=== PATIENT | male | born 1980 | race Caucasian/White ===

== ENCOUNTER 2018-10-07 15:05 | Emergency (ER) | payer OTHER, MEDICAID, SELFPAY ==
[2018-10-07 15:08] VITALS: BP 130/65; PULSE 83; RESP 20; TEMP 37.1; O2SAT 95; BMI 64.2
--- NOTE | 2018-10-07 15:48 | DI.US.S_ITS ---
PROCEDURE: US PERIPH VENOUS LOW EXTREM LT INDICATIONS: In ED WR, can go to US. h/o dvt, not on thinners TECHNIQUE: Real-time imaging, as well as color and pulse Doppler interrogation, were performed of the lower extremity deep veins from the inguinal ligament to the popliteal fossa. COMPARISON: None. FINDINGS: The deep veins are normally compressible, and free of intraluminal thrombus. Color and pulse Doppler demonstrate normal phasic intraluminal flow. There is normal augmentation response to distal compression maneuver. However, partial thrombosis of the greater saphenous vein is identified as well as areas of varicosities within the thigh. IMPRESSION: 1. No evidence of left lower charm the deep vein thrombosis. 2. Partial thrombosis of the greater saphenous vein is compatible with superficial vein thrombosis which probably is subacute and clinical correlation is recommended to exclude superficial thrombophlebitis. Dictated by: Korey Mathews M.D. on 10/07/2018 at 15:52 Approved by: Korey Mathews M.D. on 10/07/2018 at 16:02
[2018-10-07 16:53] VITALS: PULSE 88
--- NOTE | 2018-10-07 17:06 | ED_ITS ---
HPI - Extremity Injury (Lower) <COURTNEY Rose - Last Filed: 10/07/18 22:17> General Chief Complaint: Extremity Injury, Lower Stated Complaint: LEFT LEG SWELLING Time Seen by Provider: 10/07/18 16:48 Source: patient Mode of arrival: ambulatory Limitations: no limitations History of Present Illness HPI Narrative: 37-year-old male with history of a prior DVT and is a a former smoker here for complaint of swelling to his left lower extremity causing discomfort Since this morning. He denies any trauma to the area. He does report that he has history of having a demon to his left lower extremity more than his right after having cellulitis a couple of years ago. He states that the swelling is actually worse today. 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 He denies any chest pain. No shortness of breath. No fevers or chills. He denies any redness to his left lower extremity. He is ambulatory into the [facility] Home Medications Medication Instructions Recorded Confirmed No Known Home Medications 10/07/18 10/07/18 Allergies Allergy/AdvReac Type Severity Reaction Status Date / Time No Known Drug Allergies Allergy Verified 10/07/18 15:08 Review of Systems <COURTNEY Rose - Last Filed: 10/07/18 22:17> Constitutional Denies chills, Denies fever(s), Denies lethargy and Denies weakness Eyes Denies change in vision, Denies eye discharge, Denies irritation and Denies loss of vision ENT Ears, Nose, Mouth, and Throat: Denies change in voice, Denies neck pain and Denies sore throat Cardiovascular Denies chest pain, Denies irregular heart rhythm, Denies lightheadedness, Denies palpitations, Denies dyspnea, Denies dyspnea on exertion and Denies orthopnea Respiratory Denies cough, Denies dyspnea, Denies dyspnea on exertion and Denies wheezing Gastrointestinal Gastrointestinal: Denies abdominal pain, Denies change in bowel habits, Denies diarrhea, Denies nausea and Denies vomiting Genitourinary Denies hematuria, Denies flank pain, Denies urinary incontinence and Denies urinary urgency Musculoskeletal Denies neck pain Comments: Swelling left lower extremity Integumentary/Breasts Denies pruritus, Denies erythema, Denies rash and Denies wounds Neurologic Denies loss of vision and Denies weakness Endocrine Denies palpitations Hematologic/Lymphatic Denies easy bruising Allergic/Immunologic Denies wheezing Exam <COURTNEY Rose - Last Filed: 10/07/18 22:17> Initial Vital Signs Initial Vital Signs: Vital Signs Temperature 98.7 F 10/07/18 15:08 Pulse Rate 83 10/07/18 15:08 Respiratory Rate 20 10/07/18 15:08 Blood Pressure 130/65 10/07/18 15:08 Pulse Oximetry 95 10/07/18 15:08 Const General: cooperative and well developed Nutritional Appearance: well nourished Orientation: alert, awake, oriented x3 and not confused HENMA Mouth: oral mucosae normal and moist mucous membranes Eyes Conjunctivae: conjunctivae normal Sclera: sclerae normal Pupils: PERRL EOM: EOM intact bilaterally Resp Effort & Inspection: normal respiratory effort, able to speak in complete sentences, no respiratory distress and no use of accessory muscles Auscultation: clear to auscultation bilaterally, no rales, no rhonchi and no wheezes Cardio Rate: regular rate Rhythm: regular rhythm Heart Sounds: no click, no gallops, no murmurs and no rubs Pulses: normal peripheral pulses Skin General: no rashes or lesions noted, No jaundice and No petechiae Neuro General: alert, oriented x3, gait normal and no focal motor deficits Speech: speech normal Extrem Other: left lower extremity with +2 pitting edema greater than the right lower extremity. No significant erythema. No increased temperature. Homans sign is negative. Distal sensation is intact. Distal pulses are intact. Distal range of motion is intact. <George Velasquez DO - Last Filed: 10/08/18 07:11> Initial Vital Signs Initial Vital Signs: Vital Signs Temperature 98.7 F 10/07/18 15:08 Pulse Rate 83 10/07/18 15:08 Respiratory Rate 20 10/07/18 15:08 Blood Pressure 130/65 10/07/18 15:08 Pulse Oximetry 95 10/07/18 15:08 Course <COURTNEY Rose - Last Filed: 10/07/18 22:17> Orders Ordered: ED Orders 10/07/18 15:48 US periph venous low extrem lt Stat 10/07/18 17:04 Complete Blood Count AUTO DIFF Stat Comprehensive Metabolic Panel Stat Partial Thromboplastin Time Stat Prothrombin Time INR Stat Vital Signs - 8 hr 10/07/18 15:08 10/07/18 16:53 10/07/18 18:34 Temperature 98.7 F Pulse Rate 83 78 Pulse Rate [Left Posterior Tibial] 88 Respiratory Rate 20 18 Blood Pressure 130/65 134/91 H Pulse Oximetry 95 99 <George Velasquez DO - Last Filed: 10/08/18 07:11> Orders Ordered: ED Orders 10/07/18 15:48 US periph venous low extrem lt Stat 10/07/18 17:04 Complete Blood Count AUTO DIFF Stat Comprehensive Metabolic Panel Stat Partial Thromboplastin Time Stat Prothrombin Time INR Stat Vital Signs - 8 hr 10/07/18 15:08 10/07/18 16:53 10/07/18 18:34 Temperature 98.7 F Pulse Rate 83 78 Pulse Rate [Left Posterior Tibial] 88 Respiratory Rate 20 18 Blood Pressure 130/65 134/91 H Pulse Oximetry 95 99 MDM - Extremity Injury (Lower) <COURTNEY Rose - Last Filed: 10/07/18 22:17> Lab Data Result diagrams: 10/07/18 17:04 10/07/18 17:04 Lab Results 10/07/18 10/07/18 10/07/18 Range/Units 17:04 17:04 17:04 WBC 8.6 (4.5-11.0) X10^3/uL RBC 4.58 (4.5-5.9) X10^6/uL Hgb 14.6 (13.5-17.5) g/dL Hct 43.8 (41-53) % MCV 95.6 (80-100) fL MCH 31.9 (26-34) PG MCHC 33.3 (30-36) % RDW 13.9 (11.6-14.8) % Plt Count 251 (150-400) X10^3/uL Neut % (Auto) 64.8 (50-75) % Lymph % (Auto) 25.6 (25-40) % [place] % (Auto) 8.2 (3-14) % Eos % (Auto) 0.7 L (2-4) % Baso % (Auto) 0.7 (0-2) % Neut # (Auto) 5600 (2489-5896) /uL Lymph # (Auto) 2200 (5003-3163) /uL [place] # (Auto) 700 (0-900) /uL Eos # (Auto) 100 (0-450) /uL Baso # (Auto) 100 (0-100) /uL PT 13.0 H (10.1-12.7) SECONDS INR 1.1 (0.9-1.3) APTT 31 (26.4-36.2) SECONDS Sodium 138 (137-145) mmol/L Potassium 3.9 (3.4-5.1) mmol/L Chloride 102 (98-107) mmol/L Carbon Dioxide 29 (22-32) mmol/L BUN 11 (9-20) mg/dL Creatinine 0.50 L (0.66-1.25) mg/dL Estimated GFR > 60.0 (>60) mL/min BUN/Creatinine Ratio 22.0 (6-22) Glucose 105 H (70-100) mg/dL Calcium 8.8 (8.4-10.2) mg/dL Total Bilirubin 0.6 (0.2-1.3) mg/dL AST 25 (17-59) IU/L ALT 46 (21-72) IU/L Alkaline Phosphatase 79 (38-126) U/L Total Protein 7.5 (6.3-8.2) g/dL Albumin 4.3 (3.5-5.0) g/dL Globulin 3.2 (1.7-4.1) g/dL Albumin/Globulin Ratio 1.3 (1.0-2.8) Imaging Data Ultrasound left lower extremity: Radiologist's impression: [address] [address] Ultrasound Report Signed Patient: Rio Quiñones#: [id number] : 1980Acct:[id number] Age/Sex: 37 / MDate of Service: 10/07/18 Loc: ED Accession Number: [id number] Procedure: US periph venous low extrem lt Ordering Provider: Jennifer Low D.O. PROCEDURE: US PERIPH VENOUS LOW EXTREM LT INDICATIONS: In ED WR, can go to US. h/o dvt, not on thinners TECHNIQUE: Real-time imaging, as well as color and pulse Doppler interrogation, were performed of the lower extremity deep veins from the inguinal ligament to the popliteal fossa. COMPARISON: None. FINDINGS: The deep veins are normally compressible, and free of intraluminal thrombus. Color and pulse Doppler demonstrate normal phasic intraluminal flow. There is normal augmentation response to distal compression maneuver. However, partial thrombosis of the greater saphenous vein is identified as well as areas of varicosities within the thigh. IMPRESSION: 1. No evidence of left lower charm the deep vein thrombosis. 2. Partial thrombosis of the greater saphenous vein is compatible with superficial vein thrombosis which probably is subacute and clinical correlation is recommended to exclude superficial thrombophlebitis. Dictated by: Korey Mathews M.D. on 10/07/2018 at 15:52 Approved by: Korey Mathews M.D. on 10/07/2018 at 16:02 [facility] Narrative Medical decision making narrative: ultrasound left lower extremity was obtained and was negative for DVT. There does show that there is a partial thrombosis to the greater saphenous vein and findings that could represent superficial thrombitis. Differential between a dependent edema and venous insufficiency. CBC and Chem panel were obtained were unremarkable. INR was normal. Will have patient try warm moist compresses for any superficial thrombi itis and elevation for the edema. He is instructed follow up with primary care provider next few days for re-evaluation. For any worsening symptoms return em <George Velasquez, - Last Filed: 10/08/18 07:11> Lab Data Lab Results 10/07/18 10/07/18 10/07/18 Range/Units 17:04 17:04 17:04 WBC 8.6 (4.5-11.0) X10^3/uL RBC 4.58 (4.5-5.9) X10^6/uL Hgb 14.6 (13.5-17.5) g/dL Hct 43.8 (41-53) % MCV 95.6 (80-100) fL MCH 31.9 (26-34) PG MCHC 33.3 (30-36) % RDW 13.9 (11.6-14.8) % Plt Count 251 (150-400) X10^3/uL Neut % (Auto) 64.8 (50-75) % Lymph % (Auto) 25.6 (25-40) % [place] % (Auto) 8.2 (3-14) % Eos % (Auto) 0.7 L (2-4) % Baso % (Auto) 0.7 (0-2) % Neut # (Auto) 5600 (7309-4398) /uL Lymph # (Auto) 2200 (8269-2564) /uL [place] # (Auto) 700 (0-900) /uL Eos # (Auto) 100 (0-450) /uL Baso # (Auto) 100 (0-100) /uL PT 13.0 H (10.1-12.7) SECONDS INR 1.1 (0.9-1.3) APTT 31 (26.4-36.2) SECONDS Sodium 138 (137-145) mmol/L Potassium 3.9 (3.4-5.1) mmol/L Chloride 102 (98-107) mmol/L Carbon Dioxide 29 (22-32) mmol/L BUN 11 (9-20) mg/dL Creatinine 0.50 L (0.66-1.25) mg/dL Estimated GFR > 60.0 (>60) mL/min BUN/Creatinine Ratio 22.0 (6-22) Glucose 105 H (70-100) mg/dL Calcium 8.8 (8.4-10.2) mg/dL Total Bilirubin 0.6 (0.2-1.3) mg/dL AST 25 (17-59) IU/L ALT 46 (21-72) IU/L Alkaline Phosphatase 79 (38-126) U/L Total Protein 7.5 (6.3-8.2) g/dL Albumin 4.3 (3.5-5.0) g/dL Globulin 3.2 (1.7-4.1) g/dL Albumin/Globulin Ratio 1.3 (1.0-2.8) Discharge Plan Departure Patient Disposition: Home Clinical Impression: Edema of left lower extremity Discharge Date/Time: 10/07/18 18:34 Interventions: ED Discharge Assessment Last Done: 10/07/18 18:34 Instructions: DI for Dependent Edema Activity Restrictions/Additional Instructions: ultrasound was obtained of the left lower extremity and was unremarkable for DVT. Signs and symptoms presents as a dependent edema. Make sure you elevate your lower extremities to help with the swelling. Suspect there also may be some venous insufficiency. Follow up with her primary care provider for further evaluation and treatment. For any worsening symptoms return to the emergency room. You may also use warm moist compresses to the painful swollen area just in case there is a superficial blood clot. Prescriptions: No Action No Known Home Medications RF: 0 Referrals: [facility] [Provider Group] <George Velasquez, - Last Filed: 10/08/18 07:11> Cosign ED Attending Emilio Attestation: I was available for consultation during this patient's emergency department encounter
[2018-10-07 17:07] LABS: Add Manual Diff / Slide Review NO; Basophils Absolute Auto 100 /uL (0-100); Basophils Percent Auto 0.7 % (0-2); Eosinophils Absolute Auto 100 /uL (0-450); Eosinophils Percent Auto 0.7 % (2-4); Hematocrit 43.8 % (41-53); Hemoglobin 14.6 g/dL (13.5-17.5); Lymphocytes Absolute Auto 2200 /uL (1100-4500); Lymphocytes Percent Auto 25.6 % (25-40); Mean Corpuscular HGB Conc 33.3 % (30-36); Mean Corpuscular Hemoglobin 31.9 PG (26-34); Mean Corpuscular Volume 95.6 fL (80-100); Monocytes Absolute Auto 700 /uL (0-900); Monocytes Percent Auto 8.2 % (3-14); Neutrophils Absolute Auto 5600 /uL (1500-7000); Neutrophils Percent Auto 64.8 % (50-75); Platelet Count 251 X10^3/uL (150-400); Red Blood Cell Count 4.58 X10^6/uL (4.5-5.9); Red Cell Distribution Width 13.9 % (11.6-14.8); White Blood Cell Count 8.6 X10^3/uL (4.5-11.0)
[2018-10-07 17:14] LABS: Alanine Aminotransferase 46 IU/L (21-72); Albumin 4.3 g/dL (3.5-5.0); Albumin Globulin Ratio 1.3 (1.0-2.8); Alkaline Phosphatase 79 U/L (38-126); Aspartate Aminotransferase 25 IU/L (17-59); Bilirubin Total 0.6 mg/dL (0.2-1.3); Blood Urea Nitrogen 11 mg/dL (9-20); Calcium 8.8 mg/dL (8.4-10.2); Carbon Dioxide 29 mmol/L (22-32); Chloride 102 mmol/L (98-107); Estimated Glomerular Filt Rate > 60.0 mL/min (>60); Globulin 3.2 g/dL (1.7-4.1); Glucose 105 mg/dL (70-100); HEMOLYSIS < 15 (0-50); Potassium 3.9 mmol/L (3.4-5.1); Sodium 138 mmol/L (137-145); Total Protein 7.5 g/dL (6.3-8.2)
[2018-10-07 17:15] LABS: INR 1.1 (0.9-1.3)
[2018-10-07 17:18] LABS: PTT Partial Thromboplastin Tim 31 SECONDS (26.4-36.2)
[2018-10-07 18:34] VITALS: BP 134/91; PULSE 78; RESP 18; O2SAT 99
== END 2018-10-07 18:34 | disposition home or self-care (01) ==
PROVIDERS: Emergency Medicine; Emergency Provider Nurse Practitioner Family
DX: R60.0 Localized edema (principal)
CPT/HCPCS: 36415; 80053; 85025; 85610; 85730; 93971; 99282; 99284

== ENCOUNTER 2019-01-01 15:25 | Emergency (ER) | payer OTHER, MEDICAID, SELFPAY ==
[2019-01-01 15:29] VITALS: PULSE 91; RESP 22; TEMP 37.3; O2SAT 96; BMI 55.0
[2019-01-01 16:58] VITALS: BP 123/69; PULSE 87; O2SAT 96
--- NOTE | 2019-01-01 18:39 | ED.EXTPRO ---
HPI - Extremity Problem <[facility] - Last Filed: 01/01/19 18:45> General Chief complaint: Extremity Problem,Nontraumatic Stated complaint: LEFT LEG INFECTION Time Seen by Provider: 01/01/19 16:20 Source: patient Mode of arrival: ambulatory Limitations: no limitations History of Present Illness HPI Narrative: The patient is a 38-year-old male former smoker with history of diabetes who presents with chief complaint of drainage and redness from his left lower leg. He states it started draining fluid then became red last night. He denies any fevers nausea vomiting or abnormal diarrhea. He has not applied anything to it. He has not taken anything for it. he is concerned about infection as he knows he is at high risk of infection due to his diabetes. He has scheduled a follow-up appointment with his primary care provider for , but does not want to wait until in to be seen. He denies any chest pain or shortness of breath. He does state that he has chronic lower leg edema bilaterally. He denies any trauma to the area. Related Data Previous Rx's Medication Instructions Recorded clindamycin HCl 300 mg PO QID #40 cap 01/01/19 Allergies Allergy/AdvReac Type Severity Reaction Status Date / Time No Known Drug Allergies Allergy Verified 10/07/18 15:08 Review of Systems <[facility] - Last Filed: 01/01/19 18:45> Review of Systems GENERAL: Denies chills, fatigue, malaise, fever, sweats. HEENT: Denies sinus pain, ear pain, sore throat, difficulty swallowing, dizziness. RESPIRATORY: Denies dyspnea, cough, wheezing, hemoptysis, sputum. CARDIOVASCULAR: Denies chest pain, palpitations, orthopnea, edema, GASTROINTESTINAL: Denies nausea, vomiting, abdominal pain, diarrhea, constipation, melena. : Denies dysuria, frequency, incontinence, hematuria, urinary retention. MUSCULOSKELETAL: See HPI SKIN: See HPI NEUROLOGIC: Denies weakness, headache, numbness, change in speech, confusion, seizures, incoordination. PSYCHIATRIC: No concerning psychosocial issues. 12 point review of systems is negative except for those stated above PFSH <CHELSEA Cintron - Last Filed: 01/01/19 18:45> Medical History (Updated 01/01/19 @ 18:43 by UNA Cintron) Diabetes (Acute) Obesity (Acute) Social History Smoking Status: Former smoker Social History Smoking Status: Former smoker Exam <UNA Cintron - Last Filed: 01/01/19 18:45> Narrative Exam Narrative: GENERAL: Morbidly obese male lying on stretcher HEAD: Atraumatic. Normocephalic. No temporal or scalp tenderness. EYES: Pupils equal round and reactive. Extraocular motions intact. No scleral icterus. No injection or drainage. NECK: Trachea midline. No JVD or lymphadenopathy. Supple, nontender, no meningeal signs. CARDIOVASCULAR: Regular rate and rhythm RESPIRATORY: Clear to auscultation. Breath sounds equal bilaterally. No wheezes, rales, or rhonchi. No cough. No increased respiratory effort. GASTROINTESTINAL: Abdomen soft, non-tender, nondistended. No hepato-splenomegaly, or palpable masses. No guarding. Active bowel sounds. EXTREMITIES: +2 edema noted bilaterally. No pain to palpation left calf. Steady gait. BACK: Nontender without deformity or crepitance. No flank tenderness. NEURO: AOx3. SKIN: 6 x 4 cm of erythema with 2 small ulcerations draining serosanguineous fluid located left stephen Initial Vital Signs Initial Vital Signs: Vital Signs Temperature 99.2 F 01/01/19 15:29 Pulse Rate 91 H 01/01/19 15:29 Respiratory Rate 22 01/01/19 15:29 Pulse Oximetry 96 01/01/19 15:29 <Kristy Arteaga DO - Last Filed: 01/02/19 14:33> Initial Vital Signs Initial Vital Signs: Vital Signs Temperature 99.2 F 01/01/19 15:29 Pulse Rate 91 H 01/01/19 15:29 Respiratory Rate 22 01/01/19 15:29 Pulse Oximetry 96 01/01/19 15:29 Course <UNA Cintron - Last Filed: 01/01/19 18:45> Orders Ordered: ED Orders 01/01/19 16:50 Wound Culture and Gram Stain Stat Vital Signs - 8 hr 01/01/19 15:29 01/01/19 16:58 Temperature 99.2 F Pulse Rate 91 H 87 Respiratory Rate 22 Blood Pressure 123/69 Pulse Oximetry 96 96 <Kristy Arteaga DO - Last Filed: 01/02/19 14:33> Orders Ordered: ED Orders 01/01/19 16:50 Wound Culture and Gram Stain Stat Vital Signs - 8 hr 01/01/19 15:29 01/01/19 16:58 Temperature 99.2 F Pulse Rate 91 H 87 Respiratory Rate 22 Blood Pressure 123/69 Pulse Oximetry 96 96 MDM - Extremity (Nontraumatic) <DAMEON Cintron-BC - Last Filed: 01/01/19 18:45> MDM Narrative Medical decision making narrative: The patient presents with erythema and warmth on his left stephen. He does have some drainage. He is hemodynamically stable, afebrile and shows no signs of systemic illness. Thus I will treat his cellulitis with clindamycin as he has increased MRSA risk due to his diabetes. Discussed rest. Discussed follow-up with primary care provider. Discussed return precautions of chest pain, shortness of breath, fever, inability keep down fluids etc. Encourage probiotic use with clindamycin. Patient has no questions or concerns upon discharge. Discharge Plan Departure Patient Disposition: Home Clinical Impression: Cellulitis Qualifiers: Site of cellulitis: extremity Site of cellulitis of extremity: lower extremity Laterality: left Qualified Code(s): L03.116 - Cellulitis of left lower limb Discharge Date/Time: 01/01/19 16:59 Interventions: ED Discharge Assessment Last Done: 01/01/19 16:58 Instructions: DI for Cellulitis -- Adult Activity Restrictions/Additional Instructions: I have started you on an antibiotic for urine infection. Wound cultures pending at this time. I have given you few days off of work so that he can rest and elevate her leg. Please come back to emergency department for any acute concerns such as chest pain, shortness of breath inability keep down fluids. Monitor for worsening of the redness. The antibiotics will take several doses to kick in. Please follow up with primary care provider as we discussed. Prescriptions: New clindamycin HCl 300 mg capsule 300 mg PO QID Qty: 40 RF: 0 Referrals: Fabby Pena ARNP [Non-Staff] - Stand Alone Forms: Work Release Note <Kristy Arteaga DO - Last Filed: 01/02/19 14:33> Cosign ED Attending Cosignature Attestation: I was immediately available in the department for consultation. Documentation has been reviewed. I agree with assessment and plan.
== END 2019-01-01 16:59 | disposition home or self-care (01) ==
PROVIDERS: Emergency Provider Nurse Practitioner Family
DX: L03.116 Cellulitis of left lower limb (principal); R60.0 Localized edema
CPT/HCPCS: 36415; 87070; 87077; 87147; 87186; 87205; 99282; 99283

== ENCOUNTER → 2019-01-13 08:57 | Outpatient (CLI) | payer OTHER, MEDICAID, SELFPAY | PROVIDERS: PCP Nurse Practitioner Gerontology; Visit Provider Family Medicine | DX: I87.2 Venous insufficiency (chronic) (peripheral) (principal); L97.822 Non-pressure chronic ulcer of other part of left lower leg with fat layer exposed; L03.116 Cellulitis of left lower limb; E11.622 Type 2 diabetes mellitus with other skin ulcer | CPT/HCPCS: 11042; 87070; 87075; 87077; 87186; 87205; 99203; 99212 ==

== ENCOUNTER → 2019-01-15 15:20 | Outpatient (CLI) | payer OTHER, MEDICAID, SELFPAY | PROVIDERS: PCP Nurse Practitioner Gerontology; Visit Provider Family Medicine | DX: I87.2 Venous insufficiency (chronic) (peripheral) (principal); L97.822 Non-pressure chronic ulcer of other part of left lower leg with fat layer exposed | CPT/HCPCS: 99211 ==

== ENCOUNTER → 2019-01-27 13:00 | Outpatient (CLI) | payer OTHER, MEDICAID, SELFPAY | PROVIDERS: PCP Nurse Practitioner Gerontology; Visit Provider Family Medicine | DX: I87.312 Chronic venous hypertension (idiopathic) with ulcer of left lower extremity (principal); L97.822 Non-pressure chronic ulcer of other part of left lower leg with fat layer exposed; L03.116 Cellulitis of left lower limb; E11.622 Type 2 diabetes mellitus with other skin ulcer; B95.7 Other staphylococcus as the cause of diseases classified elsewhere | CPT/HCPCS: 11042; 99214 ==

== ENCOUNTER → 2019-02-04 13:45 | Outpatient (CLI) | payer OTHER, MEDICAID, SELFPAY | PROVIDERS: PCP Nurse Practitioner Gerontology; Visit Provider Family Medicine | DX: L97.822 Non-pressure chronic ulcer of other part of left lower leg with fat layer exposed (principal); I87.312 Chronic venous hypertension (idiopathic) with ulcer of left lower extremity; L03.116 Cellulitis of left lower limb; E11.622 Type 2 diabetes mellitus with other skin ulcer; B95.7 Other staphylococcus as the cause of diseases classified elsewhere | CPT/HCPCS: 11042; 87070; 87075; 87077; 87186; 87205; 99214 ==

== ENCOUNTER → 2019-02-11 15:29 | Outpatient (CLI) | payer OTHER, MEDICAID, SELFPAY | PROVIDERS: PCP Nurse Practitioner Gerontology; Visit Provider Family Medicine | DX: I87.2 Venous insufficiency (chronic) (peripheral) (principal); L97.822 Non-pressure chronic ulcer of other part of left lower leg with fat layer exposed; L08.9 Local infection of the skin and subcutaneous tissue, unspecified | CPT/HCPCS: 11042; 99214 ==

== ENCOUNTER → 2019-02-22 14:45 | Outpatient (CLI) | payer OTHER, MEDICAID, SELFPAY | PROVIDERS: PCP Nurse Practitioner Gerontology; Visit Provider Family Medicine | DX: I87.2 Venous insufficiency (chronic) (peripheral) (principal); L97.821 Non-pressure chronic ulcer of other part of left lower leg limited to breakdown of skin | CPT/HCPCS: 11042 ==

== ENCOUNTER → 2019-02-25 13:01 | Outpatient (CLI) | payer OTHER, MEDICAID, SELFPAY | PROVIDERS: PCP Nurse Practitioner Gerontology; Visit Provider Family Medicine | DX: I87.2 Venous insufficiency (chronic) (peripheral) (principal); L97.821 Non-pressure chronic ulcer of other part of left lower leg limited to breakdown of skin | CPT/HCPCS: 29581 ==

== ENCOUNTER → 2019-03-04 11:19 | Outpatient (CLI) | payer OTHER, MEDICAID, SELFPAY | PROVIDERS: PCP Nurse Practitioner Gerontology; Visit Provider Family Medicine | DX: I87.2 Venous insufficiency (chronic) (peripheral) (principal); L97.821 Non-pressure chronic ulcer of other part of left lower leg limited to breakdown of skin; E11.9 Type 2 diabetes mellitus without complications; E66.01 Morbid (severe) obesity due to excess calories; R60.0 Localized edema | CPT/HCPCS: 29581; 99213 ==

== ENCOUNTER → 2019-03-11 13:09 | Outpatient (CLI) | payer OTHER, MEDICAID, SELFPAY | PROVIDERS: PCP Nurse Practitioner Gerontology; Visit Provider Family Medicine | DX: I87.2 Venous insufficiency (chronic) (peripheral) (principal); L97.821 Non-pressure chronic ulcer of other part of left lower leg limited to breakdown of skin | CPT/HCPCS: 29581 ==

== ENCOUNTER → 2019-04-09 08:58 | Outpatient (CLI) | payer OTHER, MEDICAID, SELFPAY | PROVIDERS: PCP Nurse Practitioner Gerontology; Visit Provider Family Medicine | DX: E11.622 Type 2 diabetes mellitus with other skin ulcer (principal); I87.312 Chronic venous hypertension (idiopathic) with ulcer of left lower extremity; L97.821 Non-pressure chronic ulcer of other part of left lower leg limited to breakdown of skin; M79.662 Pain in left lower leg; R60.0 Localized edema | CPT/HCPCS: 97597 ==

== ENCOUNTER → 2019-04-14 09:56 | Outpatient (CLI) | payer OTHER, MEDICAID, SELFPAY | PROVIDERS: PCP Nurse Practitioner Gerontology; Visit Provider Family Medicine | DX: I87.312 Chronic venous hypertension (idiopathic) with ulcer of left lower extremity (principal); L97.821 Non-pressure chronic ulcer of other part of left lower leg limited to breakdown of skin; E11.622 Type 2 diabetes mellitus with other skin ulcer; R60.0 Localized edema; E66.01 Morbid (severe) obesity due to excess calories | CPT/HCPCS: 29581; 99213 ==

== ENCOUNTER → 2019-04-21 10:23 | Outpatient (CLI) | payer OTHER, MEDICAID, SELFPAY | PROVIDERS: PCP Nurse Practitioner Gerontology; Visit Provider Family Medicine | DX: I87.2 Venous insufficiency (chronic) (peripheral) (principal); E11.622 Type 2 diabetes mellitus with other skin ulcer; L97.821 Non-pressure chronic ulcer of other part of left lower leg limited to breakdown of skin; R60.0 Localized edema | CPT/HCPCS: 11042; 87070; 87077; 87147; 87186; 87205 ==

== ENCOUNTER → 2019-04-28 09:42 | Outpatient (CLI) | payer OTHER, MEDICAID, SELFPAY | PROVIDERS: PCP Nurse Practitioner Gerontology; Visit Provider Family Medicine | DX: I87.2 Venous insufficiency (chronic) (peripheral) (principal); E11.622 Type 2 diabetes mellitus with other skin ulcer; L97.821 Non-pressure chronic ulcer of other part of left lower leg limited to breakdown of skin; L08.9 Local infection of the skin and subcutaneous tissue, unspecified; R60.0 Localized edema | CPT/HCPCS: 97597; 99214 ==

== ENCOUNTER → 2019-05-05 10:29 | Outpatient (CLI) | payer OTHER, MEDICAID, SELFPAY | PROVIDERS: PCP Nurse Practitioner Gerontology; Visit Provider Family Medicine | DX: I87.312 Chronic venous hypertension (idiopathic) with ulcer of left lower extremity (principal); L97.822 Non-pressure chronic ulcer of other part of left lower leg with fat layer exposed; E11.622 Type 2 diabetes mellitus with other skin ulcer; L08.9 Local infection of the skin and subcutaneous tissue, unspecified | CPT/HCPCS: 99213 ==

== ENCOUNTER → 2019-05-12 09:41 | Outpatient (CLI) | payer OTHER, MEDICAID, SELFPAY | PROVIDERS: PCP Nurse Practitioner Gerontology; Visit Provider Family Medicine | DX: I87.2 Venous insufficiency (chronic) (peripheral) (principal); E11.622 Type 2 diabetes mellitus with other skin ulcer; L97.829 Non-pressure chronic ulcer of other part of left lower leg with unspecified severity | CPT/HCPCS: 97597 ==